=== PATIENT | male | born 1975 | race Caucasian/White ===

== ENCOUNTER 2019-02-18 15:05 | Emergency (ER) | payer OTHER ==
[~2019-02-18] VITALS: Ht 165.1 cm; Wt 81.2 kg
[~2019-02-18 15:05] MED LIST: LISINOPRIL20 MG PO; NAPROSYN500 MG PO; NORFLEX100 MG PO
[2019-02-18] MEDS ORDERED: CARVEDILOL12.5 MG PO (15:20)
[2019-02-18] MEDS ORDERED: LIPITOR10 MG PO (15:20)
[2019-02-18] MEDS ORDERED: LISINOPRIL-HCT1 EACH PO (15:20)
[2019-02-18] MEDS ORDERED: NABUMETONE 750750 M1 PO (16:25)
[2019-02-18] MEDS ORDERED: KEFLEX500 M1 PO (16:27)
[2019-02-18 16:37] VITALS: BP 154/94
== END 2019-02-18 16:38 | disposition home or self-care (01) ==
LOC: M.ERS 15:05
DX: S51.831A Puncture wound without foreign body of right forearm, initial encounter (principal); I10 Essential (primary) hypertension; F17.210 Nicotine dependence, cigarettes, uncomplicated; Z88.0 Allergy status to penicillin; Z88.6 Allergy status to analgesic agent; W22.8XXA Striking against or struck by other objects, initial encounter; Y93.89 Activity, other specified; Y92.89 Other specified places as the place of occurrence of the external cause; Y99.8 Other external cause status

== ENCOUNTER 2019-03-04 21:00 | Emergency (ER) | payer OTHER ==
[~2019-03-04] VITALS: Ht 165.1 cm; Wt 81.2 kg
[~2019-03-04 21:00] MED LIST changes: +CARVEDILOL12.5 MG PO; +KEFLEX500 M1 PO; +LIPITOR10 MG PO; +LISINOPRIL-HCT1 EACH PO; +NABUMETONE 750750 M1 PO
[2019-03-04 21:28] LABS: ABSOLUTE BASOPHILS 0.1 thou/uL (0.0-0.2); ABSOLUTE EOSINOPHILS 0.3 thou/uL (0.0-0.7); ABSOLUTE LYMPHOCYTES 3.9 thou/uL (0.8-5.3); BASOPHILS 0.7 %; EOSINOPHILS 2.6 %; HEMATOCRIT 38.3 % (42.0-52.0); HEMOGLOBIN 13.3 gm/dL (14.0-18.0); LYMPHOCYTES 38.2 %; MCH 29.4 pg (26.0-34.0); MCHC 34.7 g/dL (28.0-37.0); MCV 84.6 fL (80.0-100.0); MONOCYTES 9.5 %; MPV 7.3 fl. (7.2-11.1); NUCLEATED RBCS 0 /100WBC; PLATELET COUNT* 347 thou/uL (150-400); RBC 4.53 mil/uL (4.50-6.00); RDW-CV 13.5 % (10.5-14.5); WBC 10.3 thou/uL (4.0-11.0)
[2019-03-04 21:28] LABS: URINE BILIRUBIN NEGATIVE (Negative); URINE BLOOD NEGATIVE (Negative); URINE CLARITY CLEAR; URINE COLOR YELLOW; URINE GLUCOSE-RANDOM NEGATIVE (Negative); URINE KETONES NEGATIVE (Negative); URINE LEUKOCYTES-REFLEX NEGATIVE (Negative); URINE NITRITE-REFLEX NEGATIVE (Negative); URINE PROTEIN NEGATIVE (Negative); URINE SPECIFIC GRAVITY 1.015 (1.005-1.030); URINE UROBILINOGEN 0.2 E.U./dl (0.2-1.0)
[2019-03-04 21:40] LABS: CALCIUM 8.9 mg/dL (8.5-10.1); CREATININE 1.4 mg/dL (0.6-1.3); POTASSIUM 3.6 mmol/L (3.5-5.1)
[2019-03-04 21:44] LABS: ALBUMIN 3.5 g/dL (3.4-5.0); TOTAL BILIRUBIN 0.2 mg/dL (<0.1-1.0); TOTAL PROTEIN 7.4 g/dL (6.4-8.2)
[2019-03-04] MEDS ORDERED: ZOFRAN ODT4 MG DISSOLVE (22:16)
[2019-03-04] MEDS ORDERED: NORCO 5-325 TA1 EAC1 PO (22:16)
[2019-03-04 22:56] VITALS: BP 150/78
== END 2019-03-04 22:57 | disposition home or self-care (01) ==
LOC: M.ERS 21:00
PROVIDERS: Emergency Medicine Emergency Medical Services
DX: K52.9 Noninfective gastroenteritis and colitis, unspecified (principal); F17.210 Nicotine dependence, cigarettes, uncomplicated; I10 Essential (primary) hypertension; E78.00 Pure hypercholesterolemia, unspecified; Z88.6 Allergy status to analgesic agent; Z88.0 Allergy status to penicillin